=== PATIENT | female | born 1965 | race Caucasian/White ===

== ENCOUNTER → 2017-01-26 | Outpatient (CLI) | payer BC ==
[~2017-01-26] MED LIST: ASPI81TA28 PO; ATV5 PO; BIOT1TAB5 PO; BUPR75TA20 PO; CIPR-255 PO; LACT10CA3 PO; LEVO175T3 PO; MULT-506 PO; PANT40TA PO; POTATAB13 PO; TRAZ100T29 PO
[2017-01-26 18:53] LABS: T3 TOTAL 1.32 ng/ml (0.60-1.81); THYROID STIMULATING HORMONE 0.089 uIu/ml (0.300-4.500); THYROXINE (T4) 6.9 mcg/dl (4.5-10.9)
== END | disposition home or self-care (01) ==
LOC: C.LABMFLN 14:56
PROVIDERS: ATTEND Family Medicine
DX: E03.9 Hypothyroidism, unspecified (principal)

== ENCOUNTER → 2017-12-14 | Outpatient (CLI) | payer BC ==
[~2017-12-14] MED LIST changes: +BUPRTAB51 PO; +CHOL1000 PO; +CYAN500T13 PO; +LIOT5TAB PO; +MISCCAP80 PO; +THYR15TA PO; +THYR90TA PO
[2017-12-14 10:28] LABS: BASO % 0.5 %; BASO ABS # 0.03 K/uL (0-0.2); EOS % 1.5 %; EOS ABS # 0.09 K/uL (0-0.5); HEMATOCRIT 43.3 % (37-47); HEMOGLOBIN 14.4 g/dL (12.0-16.0); IG# 0.01 K/uL (0.00-0.02); LYMPH % 25.3 %; LYMPH ABS # 1.48 K/uL (1.2-3.4); MEAN CELL VOLUME 88.2 fL (80-100); MEAN CORPUSCULAR HEMOGLOBIN 29.3 pg (25-34); MEAN CORPUSCULAR HGB CONC 33.3 g/dl (32-36); MONO % 5.1 %; NEUT % 67.4 %; NEUT ABS # 3.95 K/uL (1.4-6.5); PLATELET COUNT 197 K/uL (130-400); RED CELL DISTRIBUTION WIDTH CV 12.9 % (11.5-14.5); RED CELL DISTRIBUTION WIDTH SD 41.4 fL (36.4-46.3); WHITE BLOOD COUNT 5.86 K/uL (4.8-10.8)
[2017-12-14 11:03] LABS: BLOOD UREA NITROGEN 9 mg/dl (7-18); CALCIUM 8.9 mg/dl (8.5-10.1); CARBON DIOXIDE 31 mmol/L (21-32); CREATININE 0.77 mg/dl (0.60-1.20); GLUCOSE 116 mg/dl (70-99); POTASSIUM 4.1 mmol/L (3.5-5.1); SODIUM 141 mmol/L (136-145)
== END | disposition home or self-care (01) ==
LOC: C.CPL 09:13
PROVIDERS: ATTEND Orthopaedic Surgery
DX: Z01.812 Encounter for preprocedural laboratory examination (principal); Z01.810 Encounter for preprocedural cardiovascular examination; M75.02 Adhesive capsulitis of left shoulder

== ENCOUNTER → 2017-12-23 | Outpatient (CLI) | payer BC ==
[~2017-12-23] MED LIST changes: -ASPI81TA28 PO; -BIOT1TAB5 PO; -BUPR75TA20 PO; -CIPR-255 PO; +HYDR-5688 PO; +KETO10TA PO; -LACT10CA3 PO; -LEVO175T3 PO; -MULT-506 PO; -PANT40TA PO; -POTATAB13 PO
== END | disposition home or self-care (01) ==
LOC: C.LABMFLN 15:55
PROVIDERS: ATTEND Family Medicine
DX: E03.9 Hypothyroidism, unspecified (principal)

== ENCOUNTER → 2017-12-31 | Day surgery (SDC) | payer BC ==
[2017-12-15 16:22] VITALS: Ht 162.6 cm; Wt 68.2 kg
[~2017-12-31] VITALS: Ht 162.6 cm; Wt 68.2 kg
[~2017-12-31] MED LIST changes: +ATROPINE SULFATE 0.1 MG/ML 5ML SYR IV PRN; +BUPIVACAINE 0.25% 30 ML VIAL ONE; +CEFAZOLIN 2000MG IV PUSH 15 ML IV SCH; +DEXAMETHASONE SOD INJ 4 MG/ML VIAL ONE; +EpHEDrine SULFATE INJ 50 MG/ML AMP IV PRN; +EpHEDrine SULFATE INJ 50 MG/ML AMP ONE; +EpINEphrine INJ 1MG/ML AMP 1 MG/ML AMP ONE; +FENTANYL CITRATE INJ 50 MCG/1 ML 2 ML VIAL IV PRN; +FENTANYL CITRATE INJ 50 MCG/1 ML 2 ML VIAL ONE; +GLYCOPYRROLATE INJ 0.2 MG/ML VIAL ONE; +HYDROCODONE/ACETAMIN 5/325MG TAB PO PRN; +LACTATED RINGER'S 1000ML 1,000 ML IV SCH; +LIDOCAINE HCL 2% 2 ML VIAL (20MG/ML) ONE; +METHYLPREDNISOLONE ACETATE 80 MG/ML VIAL ONE; +MIDAZOLAM HCL 1 MG/ML 2ML VIAL ONE; +NEOSTIGMINE METHYLSULFATE 5 MG/5 ML SYR ONE; +ONDANSETRON INJ 2 MG/ML 2 ML VIAL IV PRN; +ONDANSETRON INJ 2 MG/ML 2 ML VIAL ONE; +PROPOFOL IV EMULSION 10 MG/ML 20 ML VIAL IV ONE; +ROCURONIUM BROMIDE 10 MG/ML 5 ML VIAL IV ONE; +ROPIVACAINE 0.5% 5 MG/ML 30 ML VIAL ONE; +SCOPOLAMINE 1.5 MG TDSY TD ONE; +SODIUM CHLORIDE 0.9% 1000ML 1,000 ML IV SCH
--- NOTE | 2017-12-31 09:00 | History & Physical Bridge - [place] ---
H&P Re-Evaluation Bridge Note: I have examined the patient, reviewed the History & Physical and in the interval since the performance of the History & Physical I have noted the following changes of clinical significance: No changes noted
--- NOTE | 2017-12-31 10:26 | [facility] Post Operative Brief Note ---
Immediate Operative Summary Operative Date Dec 31, 2017. Pre-Operative Diagnosis Left shoulder adhesive capsulitis Post-Operative Diagnosis Same as pre-op Procedure(s) Performed Right Shoulder Diagnostic Arthroscopy With Extensive debridement and steroid injection Surgeon Utilities Operator Surgeon(s) Iliana BARTON Estimated Blood Loss 5ml Findings Consistent with Post-Op Diagnosis Specimens None Anesthesia Type General Disposition Disposition: Recovery Room / PACU
--- NOTE | 2017-12-31 10:40 | Discharge Instructions-SurgCtr ---
Discharge Instructions Date of Service Dec 31, 2017. Visit Reason for Visit: Left Shoulder Adhesive Capsulitis, Chronic Pain Discharge Discharge Diagnosis / Problem: SAME ABOVE Discharge Goals Goal(s): Decrease discomfort, Improve function Activity Recommendations Activity Limitations: as noted below Lifting Limitations: none Shower/Bathe: tomorrow Anesthesia . Post Anesthesia Instructions: If you have had General Anesthesia or IV Sedation: * Do not drive today. * Resume driving when surgeon permits. * Do not make important decisions or sign legal documents today. * Call surgeon for: 1. Temperature elevations greater than 101 degrees F. 2. Uncontrollable pain. 3. Excessive bleeding. 4. Persistent nausea and vomiting. 5. Medication intolerance (nausea, vomiting or rash). * For nausea and vomiting use only clear liquids such as: tea, soda, bouillon until nausea subsides, then gradually increase diet as tolerated. * If you have any concerns or questions, call your surgeon's office. If physician is unavailable and it is an emergency, call 911 or go to the nearest emergency room. . Instructions / Follow-Up Instructions / Follow-Up MEDICATIONS: * Resume previous medications unless instructed otherwise by your surgeon. * Always take pain medication on a full stomach or with food to avoid upset stomach. * Do not drink alcohol or drive while taking narcotics. * Ibuprofen or Tylenol may be taken if narcotic not needed. SPECIAL CARE INSTRUCTIONS: __ None _X_ Keep extremity elevated and iced x 48 hours; apply ice 20-30 minutes 8-10 times/day. May remove at night. _X_ Sling (REMOVE TOMORROW) __24 hrs/day __ Remove at night __ Shoulder Immobilizer __ 24 hrs/day __ Remove at night _X_ Dressing __ Maintain until seen in office, may shower with plastic over site _X_ Remove dressings in 24-48 hours and then may shower _X_ Cover incisions with band-aids after showering __ Do not remove steri-strips Call physician if chills or temperature rises above 102 degrees or pain unrelieved by prescribed pain medications at . . Diet Recommendations Home Diet: no limitations Fluid Restriction: None Procedures Procedures Performed: Right Shoulder Diagnostic Arthroscopy With Extensive debridement and steroid injection Pending Studies Studies pending at discharge: no Work Instructions Return To Work: 5 days (WHEN PAIN IS CONTROLLED ) Lifting Limitations: none Medical Emergencies . Who to Call and When: Medical Emergencies: If at any time you feel your situation is an emergency, please call 911 immediately. . Non-Emergent Contact Non-Emergency issues call your: Primary Care Provider Call Non-Emergent contact if: you have a fever, temperature is above 101.5 . . "Provider Documentation" section prepared by Bam Boateng. .
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
[2017-12-31 11:37] VITALS: TEMP 36.6
--- NOTE | 2017-12-31 12:07 | Anesthesia Progress Nt - [facility] ---
Anesthesia Post Op Note Date & Time Dec 31, 2017 at 12:07 Vital Signs Pain Intensity: 0 Vital Signs Past 12 Hours Date Time Temp Pulse Resp B/P (MAP) Pulse Ox O2 Delivery O2 Flow Rate FiO2 12/31/17 11:37 36.6 81 16 122/81 (95) 96 Room Air 12/31/17 11:32 90 27 97 12/31/17 11:32 90 27 12/31/17 11:31 124/93 12/31/17 11:27 82 12 12/31/17 11:27 83 12 94 12/31/17 11:26 139/90 12/31/17 11:23 78 16 12/31/17 11:23 79 16 97 12/31/17 11:21 142/85 12/31/17 11:20 36.4 79 20 142/85 98 Room Air 12/31/17 11:18 82 23 100 12/31/17 11:18 81 23 12/31/17 11:16 136/93 12/31/17 11:13 86 20 95 12/31/17 11:13 85 20 12/31/17 11:11 125/82 12/31/17 11:08 100 12 98 12/31/17 11:08 100 12 12/31/17 11:06 134/113 12/31/17 11:03 90 19 12/31/17 11:03 90 19 100 12/31/17 11:01 128/79 12/31/17 10:58 92 16 100 12/31/17 10:58 96 16 12/31/17 10:56 123/90 12/31/17 10:53 93 31 116/76 100 12/31/17 10:53 93 31 12/31/17 10:48 94 24 12/31/17 10:48 92 24 100 12/31/17 10:46 121/82 12/31/17 10:43 95 19 100 12/31/17 10:43 95 19 12/31/17 10:41 129/80 12/31/17 10:39 125/85 12/31/17 10:38 36.1 106 12 125/85 100 Mask 6 12/31/17 09:46 134/88 12/31/17 09:44 69 12/31/17 09:44 69 18 98 12/31/17 09:41 123/82 12/31/17 09:39 80 12/31/17 09:39 83 40 98 12/31/17 09:36 125/79 12/31/17 09:34 75 12/31/17 09:34 73 22 97 12/31/17 09:31 113/76 12/31/17 09:29 85 18 98 12/31/17 09:29 84 12/31/17 09:26 115/77 12/31/17 09:24 69 15 96 12/31/17 09:24 68 12/31/17 09:21 125/78 12/31/17 09:19 58 12/31/17 09:19 59 0 98 12/31/17 09:16 134/82 12/31/17 09:14 67 17 100 12/31/17 09:14 67 12/31/17 09:09 66 18 120/87 100 12/31/17 09:09 65 12/31/17 09:04 69 0 98 12/31/17 09:04 64 12/31/17 08:59 66 12/31/17 08:59 64 0 97 12/31/17 08:54 65 0 97 12/31/17 08:54 67 12/31/17 08:49 67 12/31/17 08:49 68 0 97 12/31/17 08:44 67 0 98 12/31/17 08:44 69 12/31/17 08:39 0 12/31/17 08:34 0 12/31/17 08:29 0 12/31/17 08:12 36.4 78 16 125/82 (96) 100 Room Air Notes Mental Status: alert / awake / arousable, participated in evaluation Pt Amnestic to Procedure: Yes Nausea / Vomiting: adequately controlled Pain: adequately controlled Airway Patency, RR, SpO2: stable & adequate BP & HR: stable & adequate Hydration State: stable & adequate Anesthetic Complications: no major complications apparent
[2017-12-31 12:36] VITALS: BP 121/81; PULSE 88; O2SAT 100
== END | disposition home or self-care (01) ==
LOC: X.SURG 07:36
PROVIDERS: ATTEND Orthopaedic Surgery
DX: M75.02 Adhesive capsulitis of left shoulder (principal); F41.9 Anxiety disorder, unspecified; E89.0 Postprocedural hypothyroidism; M19.90 Unspecified osteoarthritis, unspecified site; Z87.442 Personal history of urinary calculi; Z90.710 Acquired absence of both cervix and uterus; Z82.49 Family history of ischemic heart disease and other diseases of the circulatory system; Z82.3 Family history of stroke; Z83.3 Family history of diabetes mellitus; Z80.3 Family history of malignant neoplasm of breast; Z88.2 Allergy status to sulfonamides; Z85.850 Personal history of malignant neoplasm of thyroid

== ENCOUNTER → 2018-01-26 | Outpatient (CLI) | payer BC ==
[~2018-01-26] MED LIST changes: -ATROPINE SULFATE 0.1 MG/ML 5ML SYR IV PRN; -BUPIVACAINE 0.25% 30 ML VIAL ONE; -CEFAZOLIN 2000MG IV PUSH 15 ML IV SCH; -DEXAMETHASONE SOD INJ 4 MG/ML VIAL ONE; -EpHEDrine SULFATE INJ 50 MG/ML AMP IV PRN; -EpHEDrine SULFATE INJ 50 MG/ML AMP ONE; -EpINEphrine INJ 1MG/ML AMP 1 MG/ML AMP ONE; -FENTANYL CITRATE INJ 50 MCG/1 ML 2 ML VIAL IV PRN; -FENTANYL CITRATE INJ 50 MCG/1 ML 2 ML VIAL ONE; -GLYCOPYRROLATE INJ 0.2 MG/ML VIAL ONE; -HYDROCODONE/ACETAMIN 5/325MG TAB PO PRN; -LACTATED RINGER'S 1000ML 1,000 ML IV SCH; -LIDOCAINE HCL 2% 2 ML VIAL (20MG/ML) ONE; -METHYLPREDNISOLONE ACETATE 80 MG/ML VIAL ONE; -MIDAZOLAM HCL 1 MG/ML 2ML VIAL ONE; -NEOSTIGMINE METHYLSULFATE 5 MG/5 ML SYR ONE; -ONDANSETRON INJ 2 MG/ML 2 ML VIAL IV PRN; -ONDANSETRON INJ 2 MG/ML 2 ML VIAL ONE; -PROPOFOL IV EMULSION 10 MG/ML 20 ML VIAL IV ONE; -ROCURONIUM BROMIDE 10 MG/ML 5 ML VIAL IV ONE; -ROPIVACAINE 0.5% 5 MG/ML 30 ML VIAL ONE; -SCOPOLAMINE 1.5 MG TDSY TD ONE; -SODIUM CHLORIDE 0.9% 1000ML 1,000 ML IV SCH
== END | disposition home or self-care (01) ==
LOC: C.LABMFLN 12:59
PROVIDERS: ATTEND Family Medicine
DX: E03.9 Hypothyroidism, unspecified (principal)